=== PATIENT | male | born 1985 | race Caucasian/White ===

== ENCOUNTER 2020-10-27 01:39 | Emergency (ER) | payer MEDICAID, SELFPAY ==
--- NOTE | ~2020-10-27 | XR_ITS ---
EXAMINATION: XR CHEST CLINICAL INFORMATION: Shortness of breath COMPARISON: None TECHNIQUE: Frontal view of the chest was obtained. FINDINGS: Lung volumes are symmetric. No focal consolidation is seen. No evidence of pneumothorax, pleural effusion, or pulmonary edema. Cardiac silhouette appears borderline enlarged. No acute osseous findings are seen. XR/XR chest 1V IMPRESSION: Mildly prominent cardiac silhouette. No acute pulmonary findings.
[2020-10-27 02:09] VITALS: BP 155/92; PULSE 94; RESP 20; TEMP 36.6; O2SAT 99; BMI 37.1
--- NOTE | 2020-10-27 02:56 | ECG_ITS ---
Test Reason : WEAKNESS Blood Pressure : / mmHG Vent. Rate : 076 BPM Atrial Rate : 076 BPM P-R Int : 130 ms QRS Dur : 090 ms QT Int : 364 ms P-R-T Axes : 024 022 026 degrees QTc Int : 409 ms Normal sinus rhythm Normal ECG No previous ECGs available Referred By: Nena Bojorquez Electronically Signed By:KATHLEEN BRIDGES
--- NOTE | 2020-10-27 02:58 | ED.GENADULT ---
HPI - General Adult General Chief complaint: Weakness Stated complaint: weakness Time Seen by Provider: 10/27/20 02:55 Source: patient Mode of arrival: ambulatory Limitations: no limitations History of Present Illness HPI narrative: 35-year-old male came in for evaluation of generalized weakness and shortness of breath after eating sandwich from [employer]. after finished work patient ate sandwich from [employer] then shortly after started to have generalized weakness tried to play video game at home but felt very anxious with worsening of his symptoms. Called his brother who brought him to the hospital, while in the hospital patient appeared very anxious walking around feels his symptoms get worse if he sits down or stay in bed. Patient had similar episode about 2 weeks ago was seen and evaluated at [facility] ER had a negative COVID testing and patient's symptoms improved with hydration. Patient just broke up with his girlfriend which is triggering anxiety. Related Data Allergies Allergy/AdvReac Type Severity Reaction Status Date / Time No Known Allergies Allergy Verified 10/27/20 02:56 Review of Systems Review of Systems: All other systems are reviewed and are negative Constitutional: Reports as per HPI and Reports no additional constitutional complaints Eyes: Reports as per HPI and Reports no additional eye complaints Reports system reviewed and no additional complaints, except as documented Cardiovascular: Reports as per HPI and Reports no additional cardiovascular complaints Respiratory: Reports as per HPI and Reports no additional respiratory complaints Gastrointestinal: Reports as per HPI and Reports no additional gastrointestinal complaints Genitourinary: Reports no additional female genitourinary complaints Musculoskeletal: Reports no additional musculoskeletal complaints Skin/Breast: Reports system reviewed and no additional complaints, except as docu Psychiatric: Reports no additional psychiatric complaints Endocrine: Reports no additional endocrine complaints Hematologic/Lymphatic: Reports no additional hematologic/lymphatic complaints Allergic/Immunologic: Reports no additional allergic/immunologic complaints Reports system reviewed and no additional complaints, except as documented and Reports Abnormal speech present [facility] Social History Social History Advance Directives: No Physical Exam Vital Signs: Vital Signs: Last Vital Signs Temp 98.2 F 10/27/20 05:53 Pulse 69 10/27/20 05:53 Resp 16 10/27/20 05:53 BP 101/62 10/27/20 05:53 Pulse Ox 98 10/27/20 05:53 Body Mass Index 37.1 Vital signs have been reviewed as appeared to be correct. Blood pressure normal. Heart rate normal. Respiration rate normal. Temperature normal. Oxygen saturation normal. Appearance: Alert. Oriented X3. No acute distress, anxious. Head: Normal external exam. Normocephalic. Atraumatic. No Carlton signs noted. No raccoon eyes noted Eyes: PERRLA. EOMI. Conjunctiva and sclera normal. Eyelids normal. ENT: TM's Normal. Pharynx normal. Uvula midline. Moist mucous membranes. No trismus noted. No drooling noted. No muffled voice noted. Neck: Normal inspection. Neck supple. FROM. No adenopathy. Thyroid Normal. No meningeal signs. No neck mass noted. CVS: Normal heart rate and rhythm. Heart sound normal. No murmurs noted. Pulses normal throughout. Respiratory: No respiratory distress. Painless inspiration. Breath sounds normal. No wheezes/rales/rhonchi noted. Chest nontender. No accessory muscle usage noted or decreased air movement noted. Abdomen: Soft and nontender. Bowel sounds normal in all 4 quadrants. No distention noted. No organomegaly noted. No visible injury noted. Back: No CVA tenderness. Full range of motion noted. Skin: Skin warm and dry. Normal skin color. Normal skin turgor. No rashes/lesions/lacerations noted. Extremities: No lower extremity edema. Extremities exhibit normal range of motion. Extremities nontender. Neuro: Oriented X 3. Cranial nerve exam: II-XII are grossly intact No motor deficit. No sensory deficit. Reflexes normal. Course Course Course Narrative: Assessment and plan. 35-year-old male came in for generalized weakness and feeling anxious after broke up with his girlfriend. Patient has unremarkable labs, patient received Ativan in the ED which improved patient's symptoms. No SI, no HI, no hallucination. Will reassure and discharge follow-up with PCP. Leukocytosis which could be secondary to anxiety and stress. Medical Decision Making Lab Data Lab results reviewed: Yes I reviewed the patient's lab results. Result diagrams: 10/27/20 03:13 10/27/20 03:13 Labs: Lab Results 10/27/20 10/27/20 10/27/20 Range/Units 03:06 03:13 03:13 WBC 13.5 H (4.8-10.8) X10*3/uL RBC 4.93 (4.60-5.80) X10*6/uL Hgb 14.0 (14.0-18.0) g/dl Hct 42.0 (42-52) % MCV 85.2 (80-98) fL MCH 28.4 (27.0-33.0) pg MCHC 33.3 (31.0-36.0) g/dl RDW 12.4 (11.0-16.0) % Plt Count 229 (160-400) X10*3/uL MPV 11.7 (9.4-12.4) fL Immature Gran % (Auto) 0.4 (0.0-0.4) % Neut % (Auto) 78.4 H (45-73) % Lymph % (Auto) 14.4 L (20-40) % Dodge % (Auto) 6.1 (2-11) % Eos % (Auto) 0.3 (0-4) % Baso % (Auto) 0.4 (0-2) % Lymph # (Auto) 2.0 (1.2-4.9) X10*3/uL Dodge # (Auto) 0.8 (0.1-1.2) X10*3/uL Eos # (Auto) 0.0 (0.0-0.4) X10*3/uL Baso # (Auto) 0.1 (0.0-0.2) X10*3/uL Abs Immat Gran (auto) 0.06 H (0.00-0.03) X10*3/uL Absolute Neuts (auto) 10.6 H (2.0-8.3) X10*3/uL Absolute Nucleated RBC 0.000 (0.0-0.012) X10*3/uL Nucleated RBC % (auto) 0.0 (0.0-0.2) /100WBC Sodium 141 (135-145) mmol/L Potassium 4.2 (3.3-5.1) mmol/L Chloride 108 (96-108) mmol/L Carbon Dioxide 25 (22-29) mmol/L Anion Gap 12 (12-20) BUN 11 (9-16) mg/dL Creatinine 1.27 (0.5-1.4) mg/dL Estim Creat Clear Calc 90.1 Estimated GFR > 60 Random Glucose 138 H (60-115) mg/dL Calcium 9.6 (8.4-10.2) mg/dL Total Bilirubin 0.3 (0.0-1.0) mg/dL Direct Bilirubin 0.2 (0.0-0.5) mg/dL AST 20 (5-37) U/L ALT 37 (0-40) U/L Alkaline Phosphatase 70 (39-117) U/L Troponin I High Sens (<3.5-35.0) ng/L B-Natriuretic Peptide (<100) pg/mL Total Protein 7.1 (6.5-8.0) g/dL Albumin 4.5 (3.5-5.0) g/dL Lipase 42 (8-78) U/L Urine Color Urine Appearance Urine pH (5.0-8.0) Ur Specific [place] (1.005-1.025) Urine Protein (NEG-TRACE) MG/DL Urine Glucose (UA) (NEG) MG/DL Urine Ketones (NEG) MG/DL Urine Blood (NEG) Urine Nitrite (NEG) Ur Leukocyte Esterase (NEG) COVID-19 (JENNIFER) Negative (Negative) COVID-19 Clin Com See Note 10/27/20 10/27/20 10/27/20 Range/Units 03:13 03:13 04:09 WBC (4.8-10.8) X10*3/uL RBC (4.60-5.80) X10*6/uL Hgb (14.0-18.0) g/dl Hct (42-52) % MCV (80-98) fL MCH (27.0-33.0) pg MCHC (31.0-36.0) g/dl RDW (11.0-16.0) % Plt Count (160-400) X10*3/uL MPV (9.4-12.4) fL Immature Gran % (Auto) (0.0-0.4) % Neut % (Auto) (45-73) % Lymph % (Auto) (20-40) % Dodge % (Auto) (2-11) % Eos % (Auto) (0-4) % Baso % (Auto) (0-2) % Lymph # (Auto) (1.2-4.9) X10*3/uL [place] # (Auto) (0.1-1.2) X10*3/uL Eos # (Auto) (0.0-0.4) X10*3/uL Baso # (Auto) (0.0-0.2) X10*3/uL Abs Immat Gran (auto) (0.00-0.03) X10*3/uL Absolute Neuts (auto) (2.0-8.3) X10*3/uL Absolute Nucleated RBC (0.0-0.012) X10*3/uL Nucleated RBC % (auto) (0.0-0.2) /100WBC Sodium (135-145) mmol/L Potassium (3.3-5.1) mmol/L Chloride (96-108) mmol/L Carbon Dioxide (22-29) mmol/L Anion Gap (12-20) BUN (9-16) mg/dL Creatinine (0.5-1.4) mg/dL Estim Creat Clear Calc Estimated GFR Random Glucose (60-115) mg/dL Calcium (8.4-10.2) mg/dL Total Bilirubin (0.0-1.0) mg/dL Direct Bilirubin (0.0-0.5) mg/dL AST (5-37) U/L ALT (0-40) U/L Alkaline Phosphatase (39-117) U/L Troponin I High Sens < 3.5 (<3.5-35.0) ng/L B-Natriuretic Peptide 11 (<100) pg/mL Total Protein (6.5-8.0) g/dL Albumin (3.5-5.0) g/dL Lipase (8-78) U/L Urine Color YELLOW Urine Appearance CLEAR Urine pH 7.0 (5.0-8.0) Ur Specific [place] 1.025 (1.005-1.025) Urine Protein NEG (NEG-TRACE) MG/DL Urine Glucose (UA) NEG (NEG) MG/DL Urine Ketones NEG (NEG) MG/DL Urine Blood NEG (NEG) Urine Nitrite NEG (NEG) Ur Leukocyte Esterase NEG (NEG) COVID-19 (JENNIFER) (Negative) COVID-19 Clin Com ECG Data Attestation: I personally reviewed and interpreted this ECG as follows: Interpretation: Normal sinus rhythm at 76 beats per minutes, normal axis deviation, normal intervals. No ST-T changes. Discharge Plan Discharge Clinical Impression: Anxiety Patient Disposition: Home, Self-Care Instructions: Anxiety (ED) Referrals: Physician,None [Primary Care Provider] - 2 days
[2020-10-27] MEDS: LORazepam 1 MG TABLET PO (03:13)
[2020-10-27] MEDS: 0.9 % Sodium Chloride 1,000 ML 999 ML IVCONT (03:13)
[2020-10-27 03:16] VITALS: BP 110/62; PULSE 67; RESP 16; O2SAT 97
[2020-10-27 03:22] LABS: Basophils Absolute Auto 0.1 X10*3/uL (0.0-0.2); Basophils Percent Auto 0.4 % (0-2); Eosinophils Percent Auto 0.3 % (0-4); Imm Gran Abs Auto 0.06 X10*3/uL (0.00-0.03); Imm Gran Pct Auto 0.4 % (0.0-0.4); Lymphocytes Percent Auto 14.4 % (20-40); MANUAL DIFF FLAG NO; Mean Corpuscular HGB Conc 33.3 g/dl (31.0-36.0); Mean Corpuscular Hemoglobin 28.4 pg (27.0-33.0); Mean Corpuscular Volume 85.2 fL (80-98); Mean Platelet Volume 11.7 fL (9.4-12.4); Monocytes Absolute Auto 0.8 X10*3/uL (0.1-1.2); Monocytes Percent Auto 6.1 % (2-11); Neutrophils Absolute Auto 10.6 X10*3/uL (2.0-8.3); Neutrophils Percent Auto 78.4 % (45-73); Platelet Count 229 X10*3/uL (160-400); Red Blood Count 4.93 X10*6/uL (4.60-5.80); Red Cell Distribution Width 12.4 % (11.0-16.0); White Blood Count 13.5 X10*3/uL (4.8-10.8)
[2020-10-27 03:26] LABS: COVID-19 Test Negative (Negative); IDNOW Serial# 9DD0AD1C
[2020-10-27 03:39] LABS: Alanine Aminotransferase 37 U/L (0-40); Albumin Level 4.5 g/dL (3.5-5.0); Alkaline Phosphatase 70 U/L (39-117); Anion Gap 12 (12-20); Aspartate Amino Transferase 20 U/L (5-37); Bilirubin Direct 0.2 mg/dL (0.0-0.5); Bilirubin Total 0.3 mg/dL (0.0-1.0); Blood Urea Nitrogen 11 mg/dL (9-16); Calcium 9.6 mg/dL (8.4-10.2); Carbon Dioxide 25 mmol/L (22-29); Chloride 108 mmol/L (96-108); Creatinine Clr Calc Pharmacy 90.1; Estimated Glomerular Filt Rate > 60; Glucose Random 138 mg/dL (60-115); Lipase 42 U/L (8-78); Potassium 4.2 mmol/L (3.3-5.1); Sodium 141 mmol/L (135-145); Total Protein 7.1 g/dL (6.5-8.0)
[2020-10-27 03:42] LABS: B Type Natriuretic Peptide 11 pg/mL (<100); Troponin-I High Sensitivity < 3.5 ng/L (<3.5-35.0)
[2020-10-27 04:00] VITALS: BP 113/55; PULSE 77; RESP 15; O2SAT 97
--- NOTE | 2020-10-27 04:08 | PC.NURSE ---
Pt reports he feels a bit better, stating his mouth is still dry but his arms and legs don't feel as weak and shaky and he reports feeling more relaxed. Pt appears more relaxed, has been resting on stretchr rather than pacing. This RN to send urine sample for UA to lab at this time.
[2020-10-27 04:14] LABS: Appearance Urine CLEAR; Color Urine YELLOW; Glucose Urine UA NEG (NEG); Leukocyte Esterase Urine NEG (NEG); Nitrite Urine NEG (NEG); Specific Gravity - Urine 1.025 (1.005-1.025); Urine Blood NEG (NEG); Urine Ketones NEG (NEG); Urine Protein NEG (NEG-TRACE)
--- NOTE | 2020-10-27 05:52 | PC.NURSE ---
Pt reports he feels a bit better, still has some sensation of weakness, reports his SOB has improved but reports a couple of times, when I went to swallow, I had some phlegm. pt continues to deny pain, reports he is feeling more calm than on arrival
[2020-10-27 05:53] VITALS: BP 101/62; PULSE 69; RESP 16; TEMP 36.8; O2SAT 98
== END 2020-10-27 07:03 | disposition home or self-care (01) ==
PROVIDERS: Emergency Provider Emergency Medicine
DX: F41.1 Generalized anxiety disorder (principal); F43.0 Acute stress reaction; R53.1 Weakness; R06.02 Shortness of breath; Z79.899 Other long term (current) drug therapy; Z20.822 Contact with and (suspected) exposure to COVID-19
CPT/HCPCS: 36415; 71045; 80048; 80076; 81003; 83690; 83880; 84484; 85025; 87635; 93005; 96360; 99284

== ENCOUNTER 2020-10-29 23:37 | Emergency (ER) | payer MEDICAID, SELFPAY ==
[2020-10-29 23:48] VITALS: BP 126/61; PULSE 68; RESP 16; TEMP 37.2; O2SAT 100; BMI 36.3
--- NOTE | 2020-10-30 00:01 | ED_ITS ---
HPI - General Adult General Chief complaint: General Medical Stated complaint: SoB, loss of appetite, PT here earlier in week Time Seen by Provider: 10/30/20 00:01 Source: patient Mode of arrival: ambulatory Limitations: no limitations History of Present Illness HPI narrative: patient had a full work up on Tuesday for anxiety, states now he is anxious and not eating. Patient feels tight in his chest, not sleeping. Patient state he does not have a history of anxiety. Denies new stressors. Recent break up with his girlfriend. States he was shaking tonight when he could not breath. Onset (ago): day(s) Severity: mild Associated symptoms: weakness Related Data Previous Rx's Medication Instructions Recorded hydroxyzine HCl 25 mg tablet 25 mg PO TID PRN #20 tab 10/30/20 Allergies Allergy/AdvReac Type Severity Reaction Status Date / Time No Known Allergies Allergy Verified 10/27/20 02:56 Review of Systems Constitutional: Constitutional: Reports no additional constitutional complaints Eyes: Eyes: Reports no additional eye complaints ENT: Denies dizziness Cardiovascular: Cardiovascular: Reports no additional cardiovascular complaints Respiratory: Respiratory: Reports as per HPI Gastrointestinal: Gastrointestinal: Reports no additional gastrointestinal complaints Musculoskeletal: Musculoskeletal: Reports no additional musculoskeletal complaints Integumentary/Breasts: Skin/Breast: Denies rash Neurologic: Reports system reviewed and no additional complaints, except as documented, Denies dizziness and Denies Sensory deficit (Neuro) Psychiatric: Psychiatric: Denies anxiety [facility] Social History Social History Advance Directives: No Advance Directives Information Provided: Yes Physical Exam Vital Signs: Vital Signs: Last Vital Signs Temp 98.9 F 10/29/20 23:48 Pulse 68 10/29/20 23:48 Resp 16 10/29/20 23:48 BP 126/61 10/29/20 23:48 Pulse Ox 100 10/29/20 23:48 Body Mass Index 36.3 Const: General: healthy appearing Nutritional Appearance: average body habitus Orientation/consciousness: oriented to person and patient oriented x3 Limitations: no limitations HENMT: Head: Yes normal to inspection Ears: external ears normal General nose exam: Normal external nose present Mouth: Normal oral and palatal mucosa present and oropharynx normal Throat: Yes posterior oropharynx normal Eyes: General: appearance normal, both eyes and all related structures Neck: Other: supple Neck: Yes normal visual inspection Chest: Chest palpation & inspection: normal inspection of the chest Resp: Auscultation: clear to auscultation bilaterally Cardio: Jugular venous distension: no JVD Rate: regular rate Rhythm: regular rhythm Heart sounds: S1 normal heart sound present and S2 normal heart sound present GI: Inspection: Yes normal to inspection Palpation (GI): Soft to palpation, nontender and No hepatosplenomegaly present Auscultation: normal bowel sounds : General: Yes no CVA tenderness Back/Spine/Pelvis: Back: no CVA tenderness Skin: General skin exam: no rashes or lesions noted Neuro: General: oriented to person and patient oriented x3 Cranial nerves: Yes CN's II-XII intact bilaterally Motor exam (neuro): 5/5 motor strength present throughout Sensory Exam: No Sensory deficit (Neuro) Extrem: General: Yes normal to inspection Psych: Appearance: grossly normal Course Reevaluation(s) Reevaluation #1: patient with a long list of somatic complaints, vitals normal, ECG normal will start on hydroxyzine for anxiety Time: 00:17 Medical Decision Making ECG Data Attestation: I personally reviewed and interpreted this ECG as follows: Interpretation: normal sinus rate 66, no st or twave changes Discharge Plan Discharge Clinical Impression: Anxiety Patient Disposition: Home, Self-Care Instructions: Anxiety (ED) Prescriptions: New hydroxyzine HCl 25 mg tablet 25 mg PO TID PRN (Reason: anxiety) Qty: 20 RF: 0 Referrals: Physician,Unknown [Primary Care Provider] - 1 week
--- NOTE | 2020-10-30 00:08 | ECG_ITS ---
Test Reason : shortness of breath Blood Pressure : / mmHG Vent. Rate : 067 BPM Atrial Rate : 067 BPM P-R Int : 132 ms QRS Dur : 090 ms QT Int : 390 ms P-R-T Axes : 017 023 025 degrees QTc Int : 412 ms Normal sinus rhythm Normal ECG When compared with ECG of 27-OCT-2020 03:01, No significant change was found Referred By: Drew Peterson Electronically Signed By:KATHLEEN BRIDGES
[2020-10-30 00:17] LABS: COVID-19 Test Negative (Negative); IDNOW Serial# 9DD0AD1C
[2020-10-30] MEDS: hydrOXYzine HCL 25 MG TABLET PO (00:21)
== END 2020-10-30 00:28 | disposition home or self-care (01) ==
PROVIDERS: Emergency Provider Emergency Medicine
DX: F41.1 Generalized anxiety disorder (principal); Z79.899 Other long term (current) drug therapy; Z20.822 Contact with and (suspected) exposure to COVID-19
CPT/HCPCS: 36415; 87635; 93005; 99283

== ENCOUNTER 2021-01-19 22:54 | Emergency (ER) | payer SELFPAY ==
[2021-01-19 23:08] VITALS: BP 145/80; PULSE 69; RESP 18; TEMP 36.3; O2SAT 99; BMI 33.9
--- NOTE | 2021-01-20 01:54 | ED.GENADULT ---
HPI - General Adult General Chief complaint: General Medical Stated complaint: ? food poisoning Time Seen by Provider: 01/20/21 01:53 History of Present Illness HPI narrative: Patient is a 35-year-old male with a history of possible anxiety in the past. Was placed on hydroxyzine. Patient feel very shaky. Has restlessness. Has dry mouth. Weakness 2 hours after eating [employer] last night. Having similar symptoms after eating [employer] today. Denies any abdominal pain. Denies any nausea vomiting diarrhea. Positive generalized malaise. No coughing no congestion or upper respiratory symptoms. No diaphoresis. Patient is from home. Related Data Previous Rx's Medication Instructions Recorded hydroxyzine HCl 25 mg tablet 25 mg PO TID PRN #20 tab 10/30/20 hydroxyzine HCl 25 mg tablet 25 mg PO TID PRN 5 Days #20 tab 01/20/21 Allergies Allergy/AdvReac Type Severity Reaction Status Date / Time No Known Allergies Allergy Verified 10/27/20 02:56 Review of Systems Review of Systems: No chest pain or shortness of breath no diaphoresis Yes all other systems are reviewed and are negative [facility] Past Medical History Attestation statement: The following information was validated with the patient. Medical History No known health problems Social History Social History Advance Directives: No Advance Directives Information Provided: Yes Physical Exam Vital Signs: Vital Signs: Last Vital Signs Temp 97.4 F 01/19/21 23:08 Pulse 69 01/19/21 23:08 Resp 18 01/19/21 23:08 BP 145/80 H 01/19/21 23:08 Pulse Ox 99 01/19/21 23:08 BMI result Body Mass Index 33.9 Appearance: Alert. Oriented X3. No acute distress. Eyes: Pupils equal, round and reactive to light. ENT: Pharynx normal. Neck: Normal inspection. Neck supple. No lymph nodes noted. No crepitus CVS: Normal heart rate and rhythm. Pulses normal. Normal S1 and S2 Respiratory: No respiratory distress. Breath sounds normal. No Wheezing. No rales Abdomen: Soft and nontender. No rigidity. No distention. good BS x4 Skin: Skin warm and dry. Normal skin color. Normal skin turgor. Extremities: No lower extremity edema. Neurovascular intact to all extremities. No Lacerations. No Rash Neuro: Oriented X 3. No motor deficit. No sensory deficit. Moving all extermities. No slurred speech Medical Decision Making MDM Narrative Medical decision making narrative: Patient fair appearing. Lungs are clear . Exams are normal. Likely anxiety. Will have patient follow-up on an outpatient basis. In stable condition. Patient feel the symptom is exactly the same as previous. Discharge Plan Discharge Clinical Impression: Anxiety Patient Disposition: Home, Self-Care Prescriptions: New hydroxyzine HCl 25 mg tablet 25 mg PO TID PRN (Reason: anxiety) 5 Days Qty: 20 RF: 0 No Action hydroxyzine HCl 25 mg tablet 25 mg PO TID PRN (Reason: anxiety) Qty: 20 RF: 0 Referrals: Physician,Unknown J [Primary Care Provider] - 2 days Print Language: Romansh
== END 2021-01-20 02:12 | disposition home or self-care (01) ==
PROVIDERS: Emergency Provider Emergency Medicine Emergency Medical Services
DX: F41.9 Anxiety disorder, unspecified (principal)
CPT/HCPCS: 99283

== ENCOUNTER 2021-01-20 16:50 | Emergency (ER) | payer OTHER, SELFPAY ==
--- NOTE | 2021-01-20 | ECG_ITS ---
Test Reason : SOB Blood Pressure : / mmHG Vent. Rate : 071 BPM Atrial Rate : 071 BPM P-R Int : 132 ms QRS Dur : 082 ms QT Int : 384 ms P-R-T Axes : 029 018 025 degrees QTc Int : 417 ms Normal sinus rhythm Normal ECG When compared with ECG of 30-OCT-2020 00:16, No significant change was found Referred By: Generic ED Physician Electronically Signed By:LENIN FLORES MD
--- NOTE | ~2021-01-20 | XR_ITS ---
EXAMINATION: XR HUMERUS, LEFT CLINICAL INFORMATION: Arm pain. COMPARISON: None TECHNIQUE: AP and lateral views of the left humerus. FINDINGS: The bones and soft tissues are normal. No fracture. Imaged portions of the shoulder and elbow are unremarkable. XR/XR humerus LT IMPRESSION: Normal left humerus.
[2021-01-20 17:15] VITALS: BP 146/81; PULSE 72; RESP 18; TEMP 36.6; O2SAT 98; BMI 35.5
[2021-01-20 18:38] LABS: MANUAL DIFF FLAG NO
[2021-01-20 18:44] LABS: Basophils Percent Auto 0.4 % (0-2); Eosinophils Percent Auto 0.1 % (0-4); Hematocrit 44.8 % (42.0-52.0); Hemoglobin 14.5 g/dl (14.0-18.0); Imm Gran Abs Auto 0.04 X10*3/uL (0.00-0.03); Imm Gran Pct Auto 0.4 % (0.0-0.4); Lymphocytes Absolute Auto 2.5 X10*3/uL (1.2-4.9); Lymphocytes Percent Auto 23.2 % (20-40); Mean Corpuscular HGB Conc 32.4 g/dl (31.0-36.0); Mean Corpuscular Hemoglobin 27.9 pg (27.0-33.0); Mean Corpuscular Volume 86.2 fL (80.0-98.0); Monocytes Absolute Auto 0.6 X10*3/uL (0.1-1.2); Neutrophils Absolute Auto 7.8 x10*3/uL (2.0-8.3); Neutrophils Percent Auto 70.9 % (45-73); Platelet Count 196 X10*3/uL (160-400); Red Cell Distribution Width 12.2 % (11.0-16.0)
[2021-01-20 18:51] LABS: Anion Gap 11 (12-20); Blood Urea Nitrogen 11 mg/dL (9-16); COVID-19 Test Negative (Negative); Calcium 9.4 mg/dL (8.4-10.2); Carbon Dioxide 28 mmol/L (22-29); Chloride 106 mmol/L (96-108); Creatinine Clr Calc Pharmacy 91.6; Estimated Glomerular Filt Rate > 60; Glucose Random 88 mg/dL (60-115); Potassium 4.5 mmol/L (3.3-5.1); Sodium 140 mmol/L (135-145)
--- NOTE | 2021-01-20 22:07 | ED.GENADULT ---
HPI - General Adult General Chief complaint: General Medical Stated complaint: shaky left arm pain Time Seen by Provider: 01/20/21 22:07 Source: patient Mode of arrival: ambulatory Limitations: no limitations History of Present Illness HPI narrative: This is a 35-year-old male that presents to the emergency department with complaints of anxiety, shortness of breath and left arm tingling, he tells me this all started around noon when he was dropping his girlfriend off at work. He tells me this has happened to him before, he tells me at times he feels like his heart is beating fast. He tells me he is feeling pain/tingling to his left arm it is intermittent in nature. He tells me that he was recently working with a therapist however, he has not seen them in a very long time. He also tells me he was seen here yesterday for anxiety, he was given Atarax, he feels as though this medication is not working. He denies chest pain, nausea, vomiting, abdominal him, weakness, headache, dizziness, vision changes. Onset (ago): day(s) (1) Location: left and upper extremity Radiation: non-radiation Severity: severe Severity scale (1-10): 10 Quality: aching and constant Pain Consistency: constant Relieving factors: none Exacerbating factors: none Associated symptoms: denies other symptoms Treatments prior to arrival: none Related Data Previous Rx's Medication Instructions Recorded hydroxyzine HCl 25 mg tablet 25 mg PO TID PRN #20 tab 10/30/20 hydroxyzine HCl 25 mg tablet 25 mg PO TID PRN 5 Days #20 tab 01/20/21 naproxen 500 mg tablet 500 mg PO BID PRN #14 tab 01/20/21 Allergies Allergy/AdvReac Type Severity Reaction Status Date / Time No Known Allergies Allergy Verified 10/27/20 02:56 Review of Systems Review of Systems: Constitutional : No Weight loss, No Fever, No Chills, No Fatigue, No Malaise ENT/Mouth : No sore throat, No Rhinorrhea Eyes: No Eye Pain, No Swelling, No Redness Cardiovascular : No Chest Pain, + SOB, No Dyspnea on Exertion, No Orthopnea, No Edema, No Palpitations Respiratory : No Cough, No Sputum, No Wheezing Gastrointestinal : No Nausea, No Vomiting, No Diarrhea, No Constipation, No abdominal Pain, No Hematochezia, No Melena Genitourinary : No Dysuria, No Urinary Frequency, No Hematuria, Musculoskeletal : No joint pain, No Myalgias, No Joint Swelling, + extremity pain Skin : No Skin Lesions, No rash Neuro : No Weakness, No Numbness, No Dizziness, No Headache Psych : + Anxiety/Panic, No Depression All other systems reviewed and are negative Yes all other systems are reviewed and are negative [facility]LY [facility] Past Medical History Attestation statement: The following information was validated with the patient. Source: old records reviewed and nursing notes reviewed Medical History No known health problems Social History Social History Advance Directives: No Advance Directives Information Provided: Yes Physical Exam Vital Signs: Vital Signs: Last Vital Signs Temp 98 F 01/20/21 17:15 Pulse 72 01/20/21 17:15 Resp 18 01/20/21 17:15 BP 146/81 H 01/20/21 17:15 Pulse Ox 98 01/20/21 17:15 BMI result Body Mass Index 35.5 VSS noted to be slightly hypertensive likely secondary to anxiety Appearance: Alert.? Oriented X3.? No acute distress.?+ anxious patient Head: Normocephalic, atraumatic, no step-offs or deformities Eyes: Pupils equal, round and reactive to light.? ENT: Pharynx normal.? Neck: Normal inspection.? Neck supple.? CVS: Normal heart rate and rhythm.? Pulses normal.? Respiratory: No respiratory distress.? Breath sounds normal.? Abdomen: Soft and nontender.? Skin: Skin warm and dry.? Normal skin color.? Normal skin turgor.? Extremities: No lower extremity edema.? No calf ttp. 5/5 strength to bilateral upper and lower extremities Back: No midline tenderness, no C-spine tenderness, full range of motion, no CVA tenderness bilaterally Neuro: Oriented X 3.? No motor deficit.? No sensory deficit. Course Reevaluation(s) Reevaluation #1: Patient has a slightly elevated white blood cell count, no electrolyte abnormalities, COVID negative, EKG within normal limits, x-ray of the left humerus normal. Troponin is pending. I suspect that this is anxiety due to patient's history and physical examination. I do not suspect that this is ACS however it will be ruled out. Time: 22:32 Reevaluation #2: Patient's EKG within normal limits, troponin negative. No chest pain at this time. At this time this is likely a muscle strain to the left shoulder/arm. Patient's shortness of breath, and symptoms may be secondary to anxiety is patient has a longstanding history of this. He tells me this feels like his typical anxiety attack. I have advised patient to return to the emergency department with new or worsening symptoms. I have also advised him to follow-up with a psychiatrist or therapist and his PCP. I have given him strict return precautions. Time: 23:06 Medical Decision Making MDM Narrative Medical decision making narrative: 35-year-old male presents to the emergency department with anxiety, left arm pain/tingling that started this morning around noon, he also reports associated intermittent shortness of breath. He tells me that this has happened to him in the past, it feels like his typical anxiety attack, he tells me he is followed by therapist however he has not seen them for a while. Physical examination benign Plan at this time is to obtain basic labs, troponin, EKG, and x-ray of the left arm. Medical Records Medical records reviewed: Yes I reviewed the patient's medical records. Lab Data Lab results reviewed: Yes I reviewed the patient's lab results. Result diagrams: 01/20/21 18:33 01/20/21 18:33 Labs: Lab Results 01/20/21 01/20/21 01/20/21 Range/Units 18:33 18:33 18:33 WBC 11.0 H (4.8-10.8) X10*3/uL RBC 5.20 (4.60-5.80) X10*6/uL Hgb 14.5 (14.0-18.0) g/dl Hct 44.8 (42.0-52.0) % MCV 86.2 (80.0-98.0) fL MCH 27.9 (27.0-33.0) pg MCHC 32.4 (31.0-36.0) g/dl RDW 12.2 (11.0-16.0) % Plt Count 196 (160-400) X10*3/uL MPV 12.0 (9.4-12.4) fL Immature Gran % (Auto) 0.4 (0.0-0.4) % Neut % (Auto) 70.9 (45-73) % Lymph % (Auto) 23.2 (20-40) % [place] % (Auto) 5.0 (2-11) % Eos % (Auto) 0.1 (0-4) % Baso % (Auto) 0.4 (0-2) % Lymph # (Auto) 2.5 (1.2-4.9) X10*3/uL [place] # (Auto) 0.6 (0.1-1.2) X10*3/uL Eos # (Auto) 0.0 (0.0-0.4) X10*3/uL Baso # (Auto) 0.0 (0.0-0.2) X10*3/uL Abs Immat Gran (auto) 0.04 H (0.00-0.03) X10*3/uL Absolute Neuts (auto) 7.8 (2.0-8.3) x10*3/uL Absolute Nucleated RBC 0.000 (0.0-0.012) X10*3/uL Nucleated RBC % (auto) 0.0 (0.0-0.2) /100WBC Sodium 140 (135-145) mmol/L Potassium 4.5 (3.3-5.1) mmol/L Chloride 106 (96-108) mmol/L Carbon Dioxide 28 (22-29) mmol/L Anion Gap 11 L (12-20) BUN 11 (9-16) mg/dL Creatinine 1.22 (0.5-1.4) mg/dL Estim Creat Clear Calc 91.6 Estimated GFR > 60 Random Glucose 88 D (60-115) mg/dL Calcium 9.4 (8.4-10.2) mg/dL Troponin I High Sens (<3.5-35.0) ng/L COVID-19 (JENNIFER) Negative (Negative) COVID-19 Clin Com See Note 01/20/21 Range/Units 18:33 WBC (4.8-10.8) X10*3/uL RBC (4.60-5.80) X10*6/uL Hgb (14.0-18.0) g/dl Hct (42.0-52.0) % MCV (80.0-98.0) fL MCH (27.0-33.0) pg MCHC (31.0-36.0) g/dl RDW (11.0-16.0) % Plt Count (160-400) X10*3/uL MPV (9.4-12.4) fL Immature Gran % (Auto) (0.0-0.4) % Neut % (Auto) (45-73) % Lymph % (Auto) (20-40) % [place] % (Auto) (2-11) % Eos % (Auto) (0-4) % Baso % (Auto) (0-2) % Lymph # (Auto) (1.2-4.9) X10*3/uL [place] # (Auto) (0.1-1.2) X10*3/uL Eos # (Auto) (0.0-0.4) X10*3/uL Baso # (Auto) (0.0-0.2) X10*3/uL Abs Immat Gran (auto) (0.00-0.03) X10*3/uL Absolute Neuts (auto) (2.0-8.3) x10*3/uL Absolute Nucleated RBC (0.0-0.012) X10*3/uL Nucleated RBC % (auto) (0.0-0.2) /100WBC Sodium (135-145) mmol/L Potassium (3.3-5.1) mmol/L Chloride (96-108) mmol/L Carbon Dioxide (22-29) mmol/L Anion Gap (12-20) BUN (9-16) mg/dL Creatinine (0.5-1.4) mg/dL Estim Creat Clear Calc Estimated GFR Random Glucose (60-115) mg/dL Calcium (8.4-10.2) mg/dL Troponin I High Sens < 3.5 (<3.5-35.0) ng/L COVID-19 (JENNIFER) (Negative) COVID-19 Clin Com Imaging Data X-ray of left humerus: Attestation: I personally reviewed and interpreted this imaging study as follows: Radiologist's impression: FINDINGS: The bones and soft tissues are normal. No fracture. Imaged portions of the shoulder and elbow are unremarkable.? XR/XR humerus LT IMPRESSION: Normal left humerus. ECG Data Attestation: I personally reviewed and interpreted this ECG as follows: Prior ECG tracings: available for review Interpretation: Ventricular rate of 71, ND normal, QRS normal, QT/QTC normal. EKG shows normal sinus rhythm, no ST elevations or inversions. No acute ischemia. No significant changes when compared with EKG of October 30, 2020. Critical Care Time Critical Care Time Critical Care Time: No Discharge Plan Discharge Clinical Impression: Anxiety, Left arm pain Patient Disposition: Home, Self-Care Instructions: Anxiety (ED), Arm Pain (ED) Additional Instructions: Take your medications as prescribed. If you were prescribed antibiotics today, it is important that you take your medication to their entirety, do not skip any doses, do not finish them early. Follow-up with your primary care provider this week. It may be a good idea for you to reach out to a therapist or psychiatrist so they can help control your anxiety. Return to the emergency department with new or worsening symptoms. In case of emergency call 911 Prescriptions: New naproxen 500 mg tablet 500 mg PO BID PRN (Reason: pain) Qty: 14 RF: 0 No Action hydroxyzine HCl 25 mg tablet 25 mg PO TID PRN (Reason: anxiety) Qty: 20 RF: 0 hydroxyzine HCl 25 mg tablet 25 mg PO TID PRN (Reason: anxiety) 5 Days Qty: 20 RF: 0 Referrals: Physician,None [Primary Care Provider] - 2 days
[2021-01-20 22:57] LABS: Troponin-I High Sensitivity < 3.5 ng/L (<3.5-35.0)
== END 2021-01-20 23:18 | disposition home or self-care (01) ==
PROVIDERS: Physician Assistant; Emergency Provider Emergency Medicine Emergency Medical Services
DX: F41.9 Anxiety disorder, unspecified (principal); M79.602 Pain in left arm; Z20.822 Contact with and (suspected) exposure to COVID-19; Z79.899 Other long term (current) drug therapy
CPT/HCPCS: 36415; 73060; 80048; 84484; 85025; 87635; 93005; 99283; 99284

== ENCOUNTER 2022-04-01 19:04 | Emergency (ER) | payer SELFPAY ==
--- NOTE | ~2022-04-01 | XR_ITS ---
EXAMINATION: XR CHEST CLINICAL INFORMATION: Chest pain COMPARISON: Chest x-ray 10/27/2020 TECHNIQUE: 2 views of the chest were obtained. FINDINGS: The lungs are clear. No airspace consolidation, pleural effusion, or pneumothorax. The cardiomediastinal silhouette is within normal limits. No acute osseous injury. XR/XR chest 2V IMPRESSION: No acute pulmonary process.
--- NOTE | 2022-04-01 19:07 | ECG_ITS ---
Test Reason : CHEST PAIN Blood Pressure : / mmHG Vent. Rate : 073 BPM Atrial Rate : 073 BPM P-R Int : 128 ms QRS Dur : 080 ms QT Int : 372 ms P-R-T Axes : 021 018 022 degrees QTc Int : 409 ms Normal sinus rhythm Normal ECG When compared with ECG of 20-JAN-2021 18:25, No significant change was found Referred By: Mouna Oh Electronically Signed By:SKY OROSCO
--- NOTE | 2022-04-01 19:51 | ED_ITS ---
HPI - Chest Pain General Chief Complaint: Chest Pain <Mouna Oh CNP - Last Filed: 04/01/22 19:56> Stated Complaint: chest pain elevated bp <Mouna Oh CNP - Last Filed: 04/01/22 19:56> Time Seen by Provider: 04/02/22 00:30 <Mouna Oh CNP - Last Filed: 04/01/22 19:56> Source: patient <Drew Garsia MD - Last Filed: 04/02/22 06:25> Mode of arrival: ambulatory <Drew Garsia MD - Last Filed: 04/02/22 06:25> Limitations: no limitations <Drew Garsia MD - Last Filed: 04/02/22 06:25> History of Present Illness HPI narrative: Patient history of anxiety does not feel anxious at this time comes here f or midsternal sharp chest pain started earlier gone by now denies any cardiac history patient did have chest pain off and on for few days. No shortness no palpitation <Drew Garsia MD - Last Filed: 04/02/22 06:25> Related Data Home Medications: Previous Rx's Medication Instructions Recorded hydroxyzine HCl 25 mg tablet 25 mg PO TID PRN anxiety #20 tabs 10/30/20 hydroxyzine HCl 25 mg tablet 25 mg PO TID PRN anxiety 5 days 01/20/21 #20 tabs naproxen 500 mg tablet 500 mg PO BID PRN pain #14 tabs 01/20/21 <Mouna Oh CNP - Last Filed: 04/01/22 19:56> Allergies/Adverse Reactions: Allergies Allergy/AdvReac Type Severity Reaction Status Date / Time No Known Allergies Allergy Verified 04/01/22 19:56 <Mouna Oh CNP - Last Filed: 04/01/22 19:56> Review of Systems Review of Systems: Yes all other systems are reviewed and are negative <Derw Garsia MD - Last Filed: 04/02/22 06:25> PMFSH Past Medical History Medical History: Medical History No known health problems <Mouna Oh CNP - Last Filed: 04/01/22 19:56> Social History Social History: Social History Advance Directives: No Advance Directives Information Provided: No <Mouna Oh MAGGIE - Last Filed: 04/01/22 19:56> Physical Exam Vital Signs: Vital Signs: Last Vital Signs Temp 98.2 F 04/01/22 23:38 Pulse 72 04/01/22 23:38 Resp 16 04/01/22 23:38 BP 125/73 04/01/22 23:38 Pulse Ox 96 04/01/22 23:38 O2 Del Method 04/01/22 23:38 BMI result Body Mass Index 34.5 <Mouna OhMAGGIE - Last Filed: 04/01/22 19:56> Vital Signs: Last Vital Signs Temp 98.2 F 04/01/22 23:38 Pulse 72 04/01/22 23:38 Resp 16 04/01/22 23:38 BP 125/73 04/01/22 23:38 Pulse Ox 96 04/01/22 23:38 O2 Del Method 04/01/22 23:38 BMI result Body Mass Index 34.5 <Drew Garsia MD - Last Filed: 04/02/22 06:25> Appearance: Alert. Oriented X3. No acute distress. Eyes: PERRLA, No Nystagmus ENT: Pharynx normal. Oral Mucosa moist Neck: Normal inspection. Neck supple. CVS: Normal heart rate and rhythm. Pulses normal. Respiratory: No respiratory distress. Equal air entry bilateral, no wheezing/rales/rhonchi Abdomen: Soft and nontender. Bowel sounds are present, no mass palpable, no CVA tenderness Skin: Skin warm and dry. Normal skin color. Normal skin turgor. Extremities: No lower extremity edema. No calf tenderness Neuro: Oriented X 3. No motor deficit. No sensory deficit.No cerebellar signs , cranial nerves II-XII intact <Drew Garsia MD - Last Filed: 04/02/22 06:25> Course Course Course Narrative: This is an RME: Additional HPI, ROS, PE not included below will be def erred to primary provider. Patient is a 36-year-old male who presents emergency department for evaluation of chest pain onset at 1200 while at rest, substernal, sharp and tight with associated dizziness, self resolves, has been intermittent since onset, unable to quantify how long it lasts. He checked blood pressure states it was 149/92, he is not on any medications for high blood pressure. Denies recent URI symptoms; denies fevers, chills, cough, shortness of breath Plan: Labs, EKG, chest x-ray, viral testing <Mouna Oh CNP - Last Filed: 04/01/22 19:56> Medical Decision Making Medical Decision Making [facility] Narrative: Patient With atypical chest pain with anxiety EKG and basic labs and troponin negative will discharge patient home advised to follow with PCP <Drew Garsia MD - Last Filed: 04/02/22 06:25> Lab Data [facility] Lab Attestation statement: I reviewed the patient's lab results. <Drew Garsia MD - Last Filed: 04/02/22 06:25> Result Diagrams: 04/01/22 20:20 04/01/22 20:20 <Mouna Oh CNP - Last Filed: 04/01/22 19:56> Labs: Lab Results 04/01/22 04/01/22 04/01/22 Range/Units 20:20 20:20 20:20 WBC 12.8 H (4.8-10.8) X10*3/uL RBC 5.45 (4.60-5.80) X10*6/uL Hgb 15.1 (14.0-18.0) g/dl Hct 46.3 (42.0-52.0) % MCV 85.0 (80.0-98.0) fL MCH 27.7 (27.0-33.0) pg MCHC 32.6 (31.0-36.0) g/dl RDW 12.4 (11.0-16.0) % Plt Count 207 (160-400) X10*3/uL MPV 11.4 (9.4-12.4) fL Immature Gran % (Auto) 0.3 (0.0-0.4) % Neut % (Auto) 68.3 (45-73) % Lymph % (Auto) 24.8 (20-40) % [place] % (Auto) 6.1 (2-11) % Eos % (Auto) 0.3 (0-4) % Baso % (Auto) 0.2 (0-2) % Lymph # (Auto) 3.2 (1.2-4.9) X10*3/uL [place] # (Auto) 0.8 (0.1-1.2) X10*3/uL Eos # (Auto) 0.0 (0.0-0.4) X10*3/uL Baso # (Auto) 0.0 (0.0-0.2) X10*3/uL Abs Immat Gran (auto) 0.04 H (0.00-0.03) X10*3/uL Absolute Neuts (auto) 8.7 H (2.0-8.3) x10*3/uL Absolute Nucleated RBC 0.000 (0.0-0.012) X10*3/uL Nucleated RBC % (auto) 0.0 (0.0-0.2) /100WBC Sodium 142 (135-145) mmol/L Potassium 4.0 (3.3-5.1) mmol/L Chloride 105 (96-108) mmol/L Carbon Dioxide 27 (22-29) mmol/L Anion Gap 14 (12-20) BUN 11 (9-16) mg/dL Creatinine 1.21 (0.5-1.4) mg/dL Estim Creat Clear Calc 90.2 Estimated GFR > 60 Random Glucose 98 (60-115) mg/dL Calcium 9.2 (8.4-10.2) mg/dL Total Bilirubin 0.9 (0.0-1.0) mg/dL AST 21 (5-37) U/L ALT 37 (0-40) U/L Alkaline Phosphatase 68 (39-117) U/L Troponin I High Sens < 3.5 (<3.5-35.0) ng/L Total Protein 7.1 (6.5-8.0) g/dL Albumin 4.5 (3.5-5.0) g/dL COVID-19 (JENNIFER) (Negative) COVID-19 Clin Com Influenza Type A (KARL) (Negative) Influenza Type B (KARL) (Negative) Influenza A & B Note 04/01/22 04/01/22 Range/Units 20:20 20:20 WBC (4.8-10.8) X10*3/uL RBC (4.60-5.80) X10*6/uL Hgb (14.0-18.0) g/dl Hct (42.0-52.0) % MCV (80.0-98.0) fL MCH (27.0-33.0) pg MCHC (31.0-36.0) g/dl RDW (11.0-16.0) % Plt Count (160-400) X10*3/uL MPV (9.4-12.4) fL Immature Gran % (Auto) (0.0-0.4) % Neut % (Auto) (45-73) % Lymph % (Auto) (20-40) % [place] % (Auto) (2-11) % Eos % (Auto) (0-4) % Baso % (Auto) (0-2) % Lymph # (Auto) (1.2-4.9) X10*3/uL [place] # (Auto) (0.1-1.2) X10*3/uL Eos # (Auto) (0.0-0.4) X10*3/uL Baso # (Auto) (0.0-0.2) X10*3/uL Abs Immat Gran (auto) (0.00-0.03) X10*3/uL Absolute Neuts (auto) (2.0-8.3) x10*3/uL Absolute Nucleated RBC (0.0-0.012) X10*3/uL Nucleated RBC % (auto) (0.0-0.2) /100WBC Sodium (135-145) mmol/L Potassium (3.3-5.1) mmol/L Chloride (96-108) mmol/L Carbon Dioxide (22-29) mmol/L Anion Gap (12-20) BUN (9-16) mg/dL Creatinine (0.5-1.4) mg/dL Estim Creat Clear Calc Estimated GFR Random Glucose (60-115) mg/dL Calcium (8.4-10.2) mg/dL Total Bilirubin (0.0-1.0) mg/dL AST (5-37) U/L ALT (0-40) U/L Alkaline Phosphatase (39-117) U/L Troponin I High Sens (<3.5-35.0) ng/L Total Protein (6.5-8.0) g/dL Albumin (3.5-5.0) g/dL COVID-19 (JENNIFER) Negative (Negative) COVID-19 Clin Com See Note Influenza Type A (KARL) Negative (Negative) Influenza Type B (KARL) Negative (Negative) Influenza A & B Note See Note <Mouna Oh, ENVIRONMENTAL LAW PROFESSOR - Last Filed: 04/01/22 19:56> Lab Results 04/01/22 04/01/22 04/01/22 Range/Units 20:20 20:20 20:20 WBC 12.8 H (4.8-10.8) X10*3/uL RBC 5.45 (4.60-5.80) X10*6/uL Hgb 15.1 (14.0-18.0) g/dl Hct 46.3 (42.0-52.0) % MCV 85.0 (80.0-98.0) fL MCH 27.7 (27.0-33.0) pg MCHC 32.6 (31.0-36.0) g/dl RDW 12.4 (11.0-16.0) % Plt Count 207 (160-400) X10*3/uL MPV 11.4 (9.4-12.4) fL Immature Gran % (Auto) 0.3 (0.0-0.4) % Neut % (Auto) 68.3 (45-73) % Lymph % (Auto) 24.8 (20-40) % [place] % (Auto) 6.1 (2-11) % Eos % (Auto) 0.3 (0-4) % Baso % (Auto) 0.2 (0-2) % Lymph # (Auto) 3.2 (1.2-4.9) X10*3/uL [place] # (Auto) 0.8 (0.1-1.2) X10*3/uL Eos # (Auto) 0.0 (0.0-0.4) X10*3/uL Baso # (Auto) 0.0 (0.0-0.2) X10*3/uL Abs Immat Gran (auto) 0.04 H (0.00-0.03) X10*3/uL Absolute Neuts (auto) 8.7 H (2.0-8.3) x10*3/uL Absolute Nucleated RBC 0.000 (0.0-0.012) X10*3/uL Nucleated RBC % (auto) 0.0 (0.0-0.2) /100WBC Sodium 142 (135-145) mmol/L Potassium 4.0 (3.3-5.1) mmol/L Chloride 105 (96-108) mmol/L Carbon Dioxide 27 (22-29) mmol/L Anion Gap 14 (12-20) BUN 11 (9-16) mg/dL Creatinine 1.21 (0.5-1.4) mg/dL Estim Creat Clear Calc 90.2 Estimated GFR > 60 Random Glucose 98 (60-115) mg/dL Calcium 9.2 (8.4-10.2) mg/dL Total Bilirubin 0.9 (0.0-1.0) mg/dL AST 21 (5-37) U/L ALT 37 (0-40) U/L Alkaline Phosphatase 68 (39-117) U/L Troponin I High Sens < 3.5 (<3.5-35.0) ng/L Total Protein 7.1 (6.5-8.0) g/dL Albumin 4.5 (3.5-5.0) g/dL COVID-19 (JENNIFER) (Negative) COVID-19 Clin Com Influenza Type A (KARL) (Negative) Influenza Type B (KARL) (Negative) Influenza A & B Note 04/01/22 04/01/22 Range/Units 20:20 20:20 WBC (4.8-10.8) X10*3/uL RBC (4.60-5.80) X10*6/uL Hgb (14.0-18.0) g/dl Hct (42.0-52.0) % MCV (80.0-98.0) fL MCH (27.0-33.0) pg MCHC (31.0-36.0) g/dl RDW (11.0-16.0) % Plt Count (160-400) X10*3/uL MPV (9.4-12.4) fL Immature Gran % (Auto) (0.0-0.4) % Neut % (Auto) (45-73) % Lymph % (Auto) (20-40) % [place] % (Auto) (2-11) % Eos % (Auto) (0-4) % Baso % (Auto) (0-2) % Lymph # (Auto) (1.2-4.9) X10*3/uL [place] # (Auto) (0.1-1.2) X10*3/uL Eos # (Auto) (0.0-0.4) X10*3/uL Baso # (Auto) (0.0-0.2) X10*3/uL Abs Immat Gran (auto) (0.00-0.03) X10*3/uL Absolute Neuts (auto) (2.0-8.3) x10*3/uL Absolute Nucleated RBC (0.0-0.012) X10*3/uL Nucleated RBC % (auto) (0.0-0.2) /100WBC Sodium (135-145) mmol/L Potassium (3.3-5.1) mmol/L Chloride (96-108) mmol/L Carbon Dioxide (22-29) mmol/L Anion Gap (12-20) BUN (9-16) mg/dL Creatinine (0.5-1.4) mg/dL Estim Creat Clear Calc Estimated GFR Random Glucose (60-115) mg/dL Calcium (8.4-10.2) mg/dL Total Bilirubin (0.0-1.0) mg/dL AST (5-37) U/L ALT (0-40) U/L Alkaline Phosphatase (39-117) U/L Troponin I High Sens (<3.5-35.0) ng/L Total Protein (6.5-8.0) g/dL Albumin (3.5-5.0) g/dL COVID-19 (JENNIFER) Negative (Negative) COVID-19 Clin Com See Note Influenza Type A (KARL) Negative (Negative) Influenza Type B (KARL) Negative (Negative) Influenza A & B Note See Note <Drew Garsia MD - Last Filed: 04/02/22 06:25> Discharge Plan Discharge Clinical Impression: Atypical chest pain <Mouna Oh CNP - Last Filed: 04/01/22 19:56> Patient Disposition: Home, Self-Care <Mouna Oh CNP - Last Filed: 04/01/22 19:56> Instructions: Chest Pain (ED) <Mouna Oh CNP - Last Filed: 04/01/22 19:56> Additional Instructions: Your chest pain is likely from anxiety Blood workup is negative for any heart damage Decrease salt intake and exercise Follow-up with your PCP if chest pain continues for further management <Mouna Oh CNP - Last Filed: 04/01/22 19:56> Prescriptions: No Action hydroxyzine HCl 25 mg tablet 25 mg PO TID PRN (Reason: anxiety) Qty: 20 0RF hydroxyzine HCl 25 mg tablet 25 mg PO TID PRN (Reason: anxiety) 5 Days Qty: 20 0RF naproxen 500 mg tablet 500 mg PO BID PRN (Reason: pain) Qty: 14 0RF Rx Instructions: Take with food <Mouna Oh CNP - Last Filed: 04/01/22 19:56> Interventions: ED Discharge Assessment Last Done: 04/02/22 01:46 <Mouna Oh CNP - Last Filed: 04/01/22 19:56> Discharge Date/Time: 04/02/22 01:46 <Mouna Oh CNP - Last Filed: 04/01/22 19:56>
[2022-04-01 19:52] VITALS: BP 121/77; PULSE 79; RESP 16; TEMP 36.4; O2SAT 96; BMI 34.5
[2022-04-01 20:25] LABS: MANUAL DIFF FLAG NO
[2022-04-01 20:30] LABS: Basophils Percent Auto 0.2 % (0-2); Eosinophils Percent Auto 0.3 % (0-4); Hematocrit 46.3 % (42.0-52.0); Hemoglobin 15.1 g/dl (14.0-18.0); Imm Gran Abs Auto 0.04 X10*3/uL (0.00-0.03); Imm Gran Pct Auto 0.3 % (0.0-0.4); Lymphocytes Absolute Auto 3.2 X10*3/uL (1.2-4.9); Lymphocytes Percent Auto 24.8 % (20-40); Mean Corpuscular HGB Conc 32.6 g/dl (31.0-36.0); Mean Corpuscular Hemoglobin 27.7 pg (27.0-33.0); Mean Platelet Volume 11.4 fL (9.4-12.4); Monocytes Absolute Auto 0.8 X10*3/uL (0.1-1.2); Monocytes Percent Auto 6.1 % (2-11); Neutrophils Absolute Auto 8.7 x10*3/uL (2.0-8.3); Neutrophils Percent Auto 68.3 % (45-73); Platelet Count 207 X10*3/uL (160-400); Red Blood Count 5.45 X10*6/uL (4.60-5.80); Red Cell Distribution Width 12.4 % (11.0-16.0); White Blood Count 12.8 X10*3/uL (4.8-10.8)
[2022-04-01 20:40] LABS: Alanine Aminotransferase 37 U/L (0-40); Albumin Level 4.5 g/dL (3.5-5.0); Alkaline Phosphatase 68 U/L (39-117); Anion Gap 14 (12-20); Aspartate Amino Transferase 21 U/L (5-37); Bilirubin Total 0.9 mg/dL (0.0-1.0); Blood Urea Nitrogen 11 mg/dL (9-16); Calcium 9.2 mg/dL (8.4-10.2); Carbon Dioxide 27 mmol/L (22-29); Chloride 105 mmol/L (96-108); Creatinine Clr Calc Pharmacy 90.2; Estimated Glomerular Filt Rate > 60; Glucose Random 98 mg/dL (60-115); Sodium 142 mmol/L (135-145); Total Protein 7.1 g/dL (6.5-8.0)
[2022-04-01 20:46] LABS: COVID-19 Test Negative (Negative); IDNOW Serial# 16C4AD1C
[2022-04-01 20:47] LABS: IDNOW Serial# BCCEAD1C; Influenza A Negative (Negative); Influenza B2 Negative (Negative); Troponin-I High Sensitivity < 3.5 ng/L (<3.5-35.0)
[2022-04-01 23:38] VITALS: BP 125/73; PULSE 72; RESP 16; TEMP 36.8; O2SAT 96
--- NOTE | 2022-04-01 23:39 | MHC.EDTECH ---
patient was called back to triage to have vitals re check .
--- NOTE | 2022-04-02 01:46 | PC.NURSE ---
Discharge instructions reviewed with pt. Pt verbalizes understanding.
== END 2022-04-02 01:46 | disposition home or self-care (01) ==
PROVIDERS: Nurse Practitioner Family; Emergency Provider Internal Medicine
DX: R07.89 Other chest pain (principal); F41.1 Generalized anxiety disorder; F43.0 Acute stress reaction; Z20.822 Contact with and (suspected) exposure to COVID-19; Z20.828 Contact with and (suspected) exposure to other viral communicable diseases; Z79.899 Other long term (current) drug therapy
CPT/HCPCS: 71046; 80053; 84484; 85025; 87502; 87635; 93005; 99283; 99284